=== PATIENT | male | born 1990 | race Caucasian/White ===

== ENCOUNTER 2025-03-18 12:47 | Emergency (ER) | payer MEDICAID ==
[~2025-03-18] VITALS: Ht 165.1 cm; Wt 39.0 kg
--- NOTE | 2025-03-18 14:05 | Physician Documentation ---
History of Present Illness ~ Chief Complaint: Diarrhea Stated Complaint: VOMITING Time Seen by MD: 13:56 Source: other (Caregiver) HPI Patient presents nonverbal unable to provide history due to chronic medical condition. He has brand new caregiver and new nurse's and they were concerned that he has diarrhea and/or vomiting and/or appears more uncomfortable than usual. Caregiver has met him for the 1st time today Medication Reconciliation Allergies: Coded Allergies: lorazepam (Verified Allergy, Unknown, 03/18/25) Review of Systems Unable to obtain complete ROS: altered mental status Physical Exam Vital Signs: Temperature: 97.0, Source: Temporal, Heart Rate: 73, Respiratory Rate: 15, BP: 98/62, Pulse Oximetry: 92, Weight: 39.000 Physical Exam Nonverbal, awake alert Contracted extremities Skin warm well-perfused moist mucous membranes Cardiopulmonary clear to auscultation bilaterally no wheezing rhonchi or rales Cardiac no murmur Abdomen soft nondistended no apparent tenderness intact G and J tubes Progress Results/Orders Reviewed/noted all lab results: Yes Results/Orders Orders - AKILA DORADO MD C Diff Toxin (03/18/25 15:11) Abdomen,Single View(Kub) (03/18/25 16:35) Us Abdomen Ltd (03/18/25 ) Completed Orders - AKILA DORADO MD Cbc/Diff (03/18/25 14:10) CMP (03/18/25 14:10) Lipase (03/18/25 14:10) Ringers Solution, Lacted (Lactated Ringe (03/18/25 14:10) Iohexol 300mg/Ml 100ml Inj. (Omnipaque-3 (03/18/25 15:37) Abdomen,Single View(Kub) (03/18/25 16:35) Acetaminophen Oral Solution (Tylenol, Ch (03/18/25 16:45) Vital Signs 03/18/25 03/18/25 03/18/25 03/18/25 12:55 15:12 15:50 16:59 Temp 97.0 Pulse 73 79 84 Resp 15 16 12 18 B/P (MAP) 98/62 126/90 (102) 120/80 (93) Pulse Ox 92 95 98 03/18/25 03/18/25 03/18/25 18:16 19:59 20:46 Temp 99.9 Pulse 83 86 84 Resp 19 22 16 B/P (MAP) 130/87 (101) 133/85 (101) 128/86 Pulse Ox 98 99 Laboratory Tests Test 03/18/25 15:08 White Blood Count 10.2 Red Blood Count 5.49 Hemoglobin 14.0 Hematocrit 43.6 Mean Corpuscular Volume 79.4 Mean Corpuscular Hemoglobin 25.5 L Mean Corpuscular Hemoglobin Concent 32.2 L Red Cell Distribution Width 18.1 H Platelet Count 360 Mean Platelet Volume 8.4 Neutrophils (%) (Auto) 68.1 Lymphocytes (%) (Auto) 23.2 Monocytes (%) (Auto) 5.9 Eosinophils (%) (Auto) 2.5 Basophils (%) (Auto) 0.3 Neutrophils # (Auto) 7.0 Lymphocytes # (Auto) 2.4 Monocytes # (Auto) 0.6 Eosinophils # (Auto) 0.3 Basophils # (Auto) 0.0 CBC Comment Sodium Level 143 Potassium Level 4.4 Chloride Level 106 Carbon Dioxide Level 31.0 Anion Gap 6 L Blood Urea Nitrogen 23 H Creatinine 0.28 L Estimated GFR/1.73 m2 > 90 BUN/Creatinine Ratio 82.1 H Glucose Level 102 Calcium Level 9.0 Total Bilirubin 0.4 Aspartate Amino Transf (AST/SGOT) 55 H Alanine Aminotransferase (ALT/SGPT) 147 H Alkaline Phosphatase 163 H Total Protein 7.8 Albumin 3.7 Globulin 4.1 Albumin/Globulin Ratio 0.9 L Lipase 24 Chemistry Comments Medical Decision Making Addendum Sign-out note I received sign-out on this patient at shift change. Briefly: Presented with reported vomiting and diarrhea. Pending ultrasound abdomen. 8:00 p.m.: Re-evaluation: The patient is lying in bed, manager math at bedside. The manager math states that he is at his baseline including activities, and does not appear in pain. I palpated his abdomen and it did not seem to cause a pain response. I reviewed his laboratory testing and ultrasound. I independently reviewed the ultrasound which shows a large gallbladder stone. The manager math tells me that this was identified on previous imaging. We had a shared decision-making conversation, after which she felt like he was okay to return back to his facility, felt like he was at his baseline. She states he actually did not have any diarrhea, but just has chronic loose stools which appeared normal. She also states he did not actually have any vomiting, but they did suction some fluid from his mouth throughout the night. It was yellow colored. Since he has been here in the ER, he has not had any vomiting or yellow fluid. She suctioned him recently and it was clear. No other acute concerns. The patient will be discharged back to his facility. He has follow up next week with his GI doctor. If he has any worsening symptoms they will return here and we will proceed with further testing including read attempting a CT scan. Celso Buckner MD Departure Time of Disposition: 20:05 Disposition: 01 HOME / SELF CARE / HOMELESS Impression: Primary Impression: Vomiting Additional Impression Text 34-year-old male presenting initially with concern for vomiting and diarrhea although he has been you manager math who has only met him for the 1st time today. He has no focal findings on exam does not appear to have any vomiting or d iarrhea. His labs were remarkable for very slightly elevated LFTs with normal bili. Initially was attempted for CT scan however due to his contractions and body positioning he was unable to be safely scanned in the CT machine. He was ordered for ultrasound and signed out to Dr. Buckner for disposition Condition: Stable Referrals: NO PRIMARY CARE PROVIDER (PCP) Education Educated: Other Educated regarding: diagnosis, treatment, need for follow up Signature Scribe Signature: na Attestation: AKILA Schaffer MD Mar 18, 2025 14:05 CELSO BUCKNER MD Mar 18, 2025 20:05
[2025-03-18 15:14] LABS: MEAN PLATELET VOLUME 8.4 FL (7.4-10.4); RED CELL DISTRIBUTION WIDTH 18.1 % (11.5-14.5)
[2025-03-18] MEDS: ringers solution, lacted 1,000 ML IV ONE (15:16)
[2025-03-18 15:30] LABS: CREATININE 0.28 MG/DL (0.60-1.10); TOTAL CARBON DIOXIDE 31.0 MMOL/L (24-32); eCRCL 203 ML/MIN; eGFR > 90 ML/MIN
[2025-03-18] MEDS ORDERED: iohexol 300mg/ml 100ml inj. ONE (15:37)
[2025-03-18] MEDS: acetaminophen 325mg/10.15ml oral unit dose solution JT ONE (17:31)
--- NOTE | 2025-03-18 17:51 | RADIOLOGY REPORT ---
EXAM: DI ABDOMEN,SINGLE VIEW(KUB) HISTORY: abdominal pain COMPARISON: None TECHNIQUE: Supine view of the abdomen FINDINGS/IMPRESSION: Nonobstructive bowel gas pattern noted. There is no evidence for pneumoperitoneum. No abnormal calcifications noted. Electronic devices projecting along lower hemiabdomens. Minimal stool burden. Over projecting wires and catheters limited evaluation. Presumed catheters projecting over the mid abdomen.
--- NOTE | 2025-03-18 19:30 | RADIOLOGY REPORT ---
ABDOMINAL ULTRASOUND CLINICAL HISTORY: RUQ pain, elevated lfts TECHNIQUE: Multiple grayscale and color Doppler ultrasound images were obtained of the abdomen. WID: COMPARISON: DI ABDOMEN,SINGLE VIEW(KUB) on DOS: 03/18/25 FINDINGS: Liver and Biliary System: Homogeneous echotexture, normal size measuring 14.33 cm. No focal hepatic observations. No intrahepatic bile duct dilatation. The common duct measures 0.3 cm at the mark hepatis. The gallbladder is normal caliber sonographic pat's sign, or pericholecystic fluid. There is cholelithiasis. Borderline wall thickening measuring 3.4 mm Pancreas: Not well seen due to overlying bowel gas Kidneys: The right kidney is 10.1 x 4.2 x 4.1 cm . No hydronephrosis, increased echogenicity, shadowing stone, or focal lesion. IMPRESSION: 1. Cholelithiasis with borderline wall thickening although no additional findings of acute cholecystitis. 2. No biliary ductal dilatation.
[2025-03-18 20:46] VITALS: BP 128/86; PULSE 84; RESP 16; TEMP 99.9; O2SAT 99
== END 2025-03-18 21:24 | disposition home or self-care (01) ==
LOC: ER 12:49
DX: R11.10 Vomiting, unspecified (principal)
CPT/HCPCS: 36415; 74018; 76700; 80053; 83690; 85025; 96360; 99285; J7120; Q9967